=== PATIENT | male | born 1980 | race Two or more races ===

== ENCOUNTER 2016-04-02 13:24 | Emergency (ER) | payer SELFPAY ==
[2016-04-02] MEDS ORDERED: IPRATROPIUM/ALBUTEROL 0.5-2.5 MG/3 ML AMPUL NEB ONE (14:00)
[2016-04-02] MEDS ORDERED: PREDNISONE 20 MG TABLET PO ONE (14:00)
--- NOTE | 2016-04-02 14:01 | ER Document Report ---
ED Medical Screen (RME) - General Stated Complaint: CHEST PAIN Mode of Arrival: Ambulatory Information source: Patient Notes: Patient reports chest discomfort off and on for 4 days. pt reports cough for 4 days. Pt denies any fever hx; none I have greeted and performed a rapid initial assessment of this patient. A comprehensive ED assessment and evaluation of the patient, analysis of test results and completion of the medical decision making process will be conducted by additional ED providers. TRAVEL OUTSIDE OF THE [place] IN LAST 30 DAYS: No - Related Data Allergies/Adverse Reactions: No Known Allergies Allergy (Unverified 04/02/16 13:58) Physical Exam - Vital signs Vitals: Temp Pulse Resp BP Pulse Ox 98.0 F 96 16 143/80 H 96 04/02/16 13:53 04/02/16 13:53 04/02/16 13:53 04/02/16 13:53 04/02/16 13:53 - Respiratory Respiratory status: No respiratory distress Breath sounds: Nonproductive cough, Stridor Course - Vital Signs Vital signs: Temp Pulse Resp BP Pulse Ox 98.0 F 96 16 143/80 H 96 04/02/16 13:53 04/02/16 13:53 04/02/16 13:53 04/02/16 13:53 04/02/16 13:53
[2016-04-02] MEDS: ALBUTEROL SULFATE 0.083% NEB 2.5 MG/3 ML AMPUL NEB SCH ×2 (14:43→15:27)
--- NOTE | 2016-04-02 16:26 | EKG REPORT ---
SEVERITY:- NORMAL ECG - SINUS RHYTHM : Confirmed by: Temo Leonardo MD 02-Apr-2016 16:26:08
[2016-04-02] MEDS ORDERED: MECLIZINE HCL 25 MG TABLET PO ONE (16:43)
--- NOTE | 2016-04-02 16:55 | ER Document Report ---
[id number] 4d Patient TRAVEL OUTSIDE OF THE [place] IN LAST 30 DAYS: No - HPI Patient complains to provider of: Dizziness Exacerbated by: Change in position, Movement of head Baseline gait: Walks w/o assistance - General Chief Complaint: Chest Pain Stated Complaint: CHEST PAIN Notes: Patient is a 36-year-old male that presents to the emergency department today with complaints of dizziness. Patient states he has had intermittent dizziness for several years. Patient states he has had this dizziness for the last 4 days with associated headaches and neck pain. Patient states he feels like the room is spinning and sometimes feels like he is going to pass out however he has never fully passed out. Patient states that he was taking [id number] medication for dizziness however it did not work. Patient denies any recent injury, nausea, or history of seizures. Patient states he has also developed a "pins and needles" sensation across his chest when his dizziness sets in. (WILL HURTADO) - Related Data Allergies/Adverse Reactions: No Known Allergies Allergy (Verified 04/02/16 15:39) Past Medical History - General Information source: Patient - Social History Smoking Status: Current Every Day Smoker Cigarette use (# per day): Yes Chew tobacco use (# tins/day): No Frequency of alcohol use: None Drug Abuse: None Lives with: Family, Spouse/Significant other Family History: Reviewed & Not Pertinent Patient has suicidal ideation: No Patient has homicidal ideation: No Surgical Hx: Negative - Medical History Notes: Hx of vertigo (WILL HURTADO) Review of Systems - Review of Systems Constitutional: No symptoms reported EENT: No symptoms reported Cardiovascular: See HPI, Chest pain, Syncope - near syncope, Dizziness Respiratory: No symptoms reported Gastrointestinal: denies: Nausea Genitourinary: No symptoms reported Male Genitourinary: No symptoms reported Musculoskeletal: No symptoms reported Skin: No symptoms reported Hematologic/Lymphatic: No symptoms reported Neurological/Psychological: See HPI, Headaches. denies: Seizure -: Yes All other systems reviewed and negative Physical Exam - Vital signs Vitals: Temp Pulse Resp BP Pulse Ox 98.0 F 96 16 143/80 H 96 04/02/16 13:53 04/02/16 13:53 04/02/16 13:53 04/02/16 13:53 04/02/16 13:53 (WILL HURTADO) (MARIE THURSTON) - Notes Notes: Physical Exam: General: Alert, appears well. HEENT: Normocephalic. Atraumatic. PERRL. Extraocular movements intact. Oropharynx clear. Neck: Supple. Non-tender. Respiratory: No respiratory distress. Clear and equal breath sounds bilaterally. Cardiovascular: Regular rate and rhythm. Abdominal: Normal Inspection. Non-tender. No distension. Normal Bowel Sounds. Back: Non-tender. No deformity or step off. Extremities: Moves all four extremities. Upper extremities: Normal inspection. Normal ROM. Lower extremities: Normal inspection. No edema. Normal ROM. Neurological: Cranial nerves II-XII grossly intact bilaterally. Strength 5/5 throughout. Sensation intact to light touch. Normal cognition. AAOx4. Normal speech. Psychological: Normal affect. Normal Mood. Skin: Warm. Dry. Normal color. (WILL HURTADO) Course - Re-evaluation Re-evalutation: 04/02/16 19:02 I personally performed the services described in the documentation, reviewed and edited the documentation which was dictated to my scribe in my presence, and it accurately records my words and actions. Patient presents to the emergency Department chief complaint of dizziness. He describes it as a room spinning sensation reproducible with head movement and change of position. He's had this numerous times in the past but is only taking [id number] medication for. No headache blurred vision double vision or strokelike symptoms. Normal gait other than when he gets vertiginous he feels like he is on a [id number]. Denies any chest pain shortness breath nausea vomiting or abdominal pain. Initially he said he had some pain in his neck and into his shoulder. Pain palpable spasm in the right shoulder. No midline cervical tenderness or neurological deficits. CT of the head is negative EKG is stable no cardiac concerns Antivert with significant improvement we'll DC on Antivert close primary care follow-up 2-3 days and discussed reasons for ED return sooner (MARIE THURSTON) - Vital Signs Vital signs: Temp Pulse Resp BP Pulse Ox 97.9 F 78 14 133/85 H 98 04/02/16 19:00 04/02/16 19:00 04/02/16 19:00 04/02/16 19:00 04/02/16 19:00 (WILL HURTADO) (MARIE THURSTON) - EKG Interpretation by Me Additional EKG results interpreted by me: 04/02/16 19:05 EKG interpreted by myself to reveal sinus rhythm at [address] segment elevation or depression (MARIE THURSTON) Discharge - Discharge Clinical Impression: Vertigo Condition: Stable Disposition: HOME, SELF-CARE Additional Instructions: Vertigo You have experienced an episode of vertigo -- a whirling dizziness which may be accompanied by nausea and vomiting or staggering. Vertigo is often caused by an irritation of the inner ear, in which case it is called labyrinthitis. It can also be a symptom of a degenerating inner ear, nerve damage, or brain injury. Your physician has evaluated you to determine whether any further testing is necessary. Vertigo is often treated with dramamine or meclizine. These medications are helpful, but stronger medication may be needed if you are vomiting. Rest in bed. You should not drive or operate machinery until completely better. It may take one to three weeks for recovery. If there are new symptoms, such as decreased hearing or vision, severe headache, weakness or faintness, or confusion, call the physician. Prescriptions: Meclizine HCl [Antivert 25 mg Tablet] 50 mg PO BID #20 tablet Referrals: [facility] [Provider Group] - Follow up tomorrow (Operative primary care physician in 2-3 days return for increasing worsening or new symptoms) Scribe Documentation - Scribe Written by Autumn:: Autumn Melendez, 1815 04/02/16 acting as scribe for :: Boyd
[2016-04-02 19:26] VITALS: BP 133/85
== END 2016-04-02 19:15 | disposition home or self-care (01) ==
LOC: ER 13:24
DX: R42 Dizziness and giddiness (principal); R07.9 Chest pain, unspecified; F17.210 Nicotine dependence, cigarettes, uncomplicated; M54.2 Cervicalgia
CPT/HCPCS: 93005; 94640 ×2; 99285; 71020; 70450; 93010; J7512; J7620